=== PATIENT | male | born 1960 | race African-American/Black ===

== ENCOUNTER 2018-09-12 08:23 | Emergency (ER) | payer BC, OTHER ==
--- OUTSIDE RECORDS SUMMARY | 2018-09-12 08:25 | XMS REPORT | Clinical Summary ---
:1960 Author Organization [facility] Address [address] [place] [address] Care Team Providers Name Role Phone Gerald Jenkins MD Primary Care Provider Allergies Active Allergy Reactions Severity Noted Date Comments No Known Drug Allergies 09/01/2015 Dogs Medications Medication Sig Dispensed Refills Start End Date Status Date LATA 10-40 mg per TK 1 T PO 6 Active tablet QD.... STOP 6 AMLODIPINE/B ENAZEPRIL doxazosin (CARDURA) 2 TK 1 T PO 2 Active MG tablet BID 6 SIMVASTATIN ORAL Take by 0 Active mouth. HYDROCHLOROTHIAZIDE Take by 0 Active ORAL mouth. aspirin (ASPIRIN LOW 0 Active DOSE) 81 MG enteric coated tablet carvedilol (COREG) 25 0 Active MG tablet meloxicam (MOBIC) 15 mg Take 1 90 tablet 0 Active tablet tablet (15 9 mg total) by mouth daily. HYDROcodone-acetaminoph TK 1 T PO Q 0 01/11/20 Discontinued en 2.5-325 mg tablet 4 TO 6 H PRN 6 18 P HYDROcodone-acetaminoph Take 1-2 50 tablet 0 02/10/20 en (NORCO) 5-325 mg per tablets by 8 18 tablet mouth every 4 (four) hours as needed for moderate pain for up to 30 days. Max Daily Amount: 12 tablets cephalexin (KEFLEX) 500 Take 1 8 capsule 0 01/13/20 MG capsule capsule (500 8 18 mg total) by mouth every 6 (six) hours for 2 days. To begin after surgery ondansetron ODT (ZOFRAN Take 1 30 tablet 1 02/10/20 ODT) 4 MG tablet (4 mg 8 18 disintegrating tablet total) by mouth every 8 (eight) hours as needed for nausea or vomiting for up to 30 days. meloxicam (MOBIC) 15 mg Take 1 30 tablet 1 06/14/19 Discontinued tablet tablet (15 8 19 mg total) by mouth daily. meloxicam (MOBIC) 15 mg Take 1 30 tablet 1 06/14/19 Discontinued tablet tablet (15 9 19 mg total) by mouth daily. meloxicam (MOBIC) 15 mg Take 1 30 tablet 1 06/14/19 Discontinued tablet tablet (15 9 19 mg total) by mouth daily. vosycbhcqcrcr-rrua-hixx Take 320.5 180 capsule 1 05/02/19 drocod 320.5-30-16 mg mg of opiate 9 19 capsule by mouth every 4 (four) hours for 30 days. Active Problems Problem Noted Date Acute medial meniscus tear of right knee 12/07/2017 Overview: Added automatically from request for surgery [id number] S/P shoulder rotator cuff repair 09/01/2015 Overview: Discussed activity modification, wound care, and home exeresis . WIll f/u in 4wks and at that time will place in PT Encounters Date Type Specialty Care Team Description 07/25/2018 Office Visit Orthopedic Surgery Vern Ling, Patellofemoral pain MD syndrome of right Sedrick Lazo knee (Primary Dx) Sayda PA 06/13/2018 Office Visit Orthopedic Surgery Vern Ling, Patellofemoral pain syndrome of right knee (Primary Dx); Knee effusion, right; Acute tear medial meniscus, right, subsequent encounter 04/02/2018 Office Visit Orthopedic Surgery Vern Ling, Effusion of right knee (Primary Dx) 03/12/2018 Office Visit Orthopedic Surgery Sedrick Lazo Tear of medial D., PA meniscus of right Vern Ling, knee, current, MD unspecified tear type, subsequent encounter (Primary Dx) 01/21/2018 Office Visit Orthopedic Surgery Sedrick Lazo Tear of medial D., PA meniscus of right knee, current, unspecified tear type, subsequent encounter (Primary Dx) 01/11/2018 Surgery General Surgery Vern Ling, Right Arthroscopy of MD the Knee with partial Medial Meniscectomy 01/11/2018 Anesthesia Event General Surgery Karena Schrader FNP 01/11/2018 Hospital Encounter General Surgery Vern Ling MD 01/10/2018 Orders Only Orthopedic Surgery Sedrick Lazo PA 01/10/2018 Orders Only Orthopedic Surgery Lakesha Alcaraz MA 12/07/2017 Transcribe Orders Orthopedic Surgery Vern Ling, Acute medial meniscus MD tear of right knee, initial encounter (Primary Dx) 12/06/2017 Office Visit Orthopedic Surgery Vern Ling, Complex tear of MD medial meniscus of right knee as current injury, initial encounter (Primary Dx) 12/06/2017 Hospital Encounter Radiology Vern Ling, Complex tear of MD medial meniscus of right knee as current injury, initial encounter 12/06/2017 Office Visit Orthopedic Surgery Vern Ling, Complex tear of medial meniscus of right knee as current injury, initial encounter (Primary Dx); Right knee pain, unspecified chronicity after 09/11/2017 Family History Medical History Relation Name Comments Kidney disease Father Heart disease Mother Relation Name Status Comments Brother 3 Alive Father Mother Son Alive Social History Tobacco Use Types Packs/Day Years Used Date Never Smoker Smokeless Tobacco: Never Used Alcohol Use Drinks/Week oz/Week Comments No Sex Assigned at Date Recorded Not on file Job Start Date Occupation Industry Not on file Not on file Not on file Travel History Travel Start Travel End No recent travel history available. Last Filed Vital Signs Vital Sign Reading Time Taken Blood Pressure 140/89 01/11/2018 1:51 PM [employer] Pulse 71 01/11/2018 1:51 PM [employer] Temperature 36.2 C (97.2 F) 01/11/2018 1:24 PM [employer] Respiratory Rate 14 01/11/2018 1:51 PM [employer] Oxygen Saturation 99% 01/11/2018 1:51 PM [employer] Inhaled Oxygen Concentration - - Weight 109 kg (240 lb) 01/11/2018 11:01 AM [employer] Height 180.3 cm (5' 11") 01/11/2018 11:01 AM [employer] Body Mass Index 33.47 01/11/2018 11:01 AM [employer] Plan of Treatment Health Maintenance Due Date Last Done Comments COLONOSCOPY SCREENING 2012 SHINGLES VACCINES (#1) 2012 INFLUENZA VACCINE 10/03/2018 Procedures Procedure Name Priority Date/Time Associated Comments Diagnosis ME ARTHROCENTESIS Routine 04/02/2018 8:00 Effusion of right Results for this ASPIR&/INJ MAJOR AM [employer] knee procedure are in JT/BURSA W/O US the results section. ME AN ELECTIVE Routine 01/11/2018 12:23 SUPRAGLOTTIC AIRWAY PM [employer] Procedure Note - Tabby Solis CRNA - 01/11/2018 12:23 PM [employer] Airway Date/Time: 01/11/2018 11:59 AM Performed by: TABBY SOLIS Authorized by: MIRZA TEJEDA Location: OR Urgency: Elective Difficult Airway: No Anesthesiologist: MIRZA TEJEDA Resident/AUTOMOTIVE REPAIR TECHNICIAN/AA: TABBY SOLIS Performed by: resident/AUTOMOTIVE REPAIR TECHNICIAN/AA Preoxygenated with 100% O2: Yes C-spine Precautions Maintained Throughout: Yes Mask Ventilation: Not attempted Final Airway Type: Supraglottic airway Final LMA: Unique LMA Size: 4 Number of Attempts at Approach: 1 POC GLUCOSE Routine 01/11/2018 11:33 AM Results for this [employer] procedure are in the results section. ESTIMATED GFR STAT 01/11/2018 10:37 AM Results for this [employer] procedure are in the results section. BASIC METABOLIC STAT 01/11/2018 10:37 AM Results for this PANEL [employer] procedure are in the results section. HC COMPLETE BLD STAT 01/11/2018 10:37 AM Results for this COUNT W/AUTO DIFF [employer] procedure are in the results section. MRI KNEE WO STAT 12/06/2017 12:52 PM Complex tear of Results for this CONTRAST RIGHT CDT medial meniscus of procedure are in right knee as the results current injury, section. initial encounter XR KNEE 4+ VW RIGHT Routine 12/06/2017 10:16 AM Right knee pain, Results for this CDT unspecified procedure are in chronicity the results section. after 09/11/2017 Results Large Joint Arthrocentesis: knee, R knee (04/02/2018 8:00 AM [employer]) [facility] 04/02/20188:59 AM Large Joint Arthrocentesis: knee, R knee Consent given by: patient Timeout: Immediately prior to procedure a time out was called to verify the correct patient, procedure, equipment, personal support worker and site/side marked as required Supporting Documentation Indications: pain and joint swelling Procedure Details Preparation: Patient was prepped and draped in the usual sterile fashion Ultrasound guided: no Location: knee - R knee Right side: Needle size: 25 G Approach: anterolateral Right knee medications administered: 5 mL lidocaine 10 mg/mL (1 %); 80 mg methylPREDNISolone acetate 40 mg/mL POC glucose (01/11/2018 11:33 AM [employer]) Pathologist [facility] POC glucose 89 65 - 99 mg/dL [facility] DEPARTMENT OF Comment: PATHOLOGY AND Meter ID: [id number] GENOMIC MEDICINE Solution Manager: Erick Baldwin Specimen Performing Organization Address City/[facility]/Zipcode Phone Number [facility] DEPARTMENT OF PATHOLOGY [address] [place] [address] AND [facility] MEDICINE Estimated GFR (01/11/2018 10:37 AM [employer]) Pathologist [facility] Estimated GFR 85 mL/min/1.73 [facility] DEPARTMENT Comment: m2 OF PATHOLOGY AND CatergoryUnitsInterpretation GENOMIC MEDICINE G1 >=90 Normal or high G2 60-89Mildly decreased [id number] to moderately decreased [id number] to severely decreased G4 15-29Severely decreased G5 <15Kidney failure The eGFR was calculated using the Chronic Kidney Disease Epidemiology Collaboration (CKD-EPI) equation. Interpretation is based on recommendations of the National Kidney Foundation-Kidney Disease Outcomes Quality Initiative (NKF-KDOQI) published in 2014. Specimen Plasma specimen Performing Organization Address City/[facility]/Zipcode Phone Number [facility] DEPARTMENT OF PATHOLOGY [address] [place] [address] AND [employer] MEDICINE CBC with platelet and differential (01/11/2018 10:37 AM [employer]) Pathologist [facility] WBC 8.0 4.5 - 11.0 k/uL [facility] DEPARTMENT OF PATHOLOGY AND GENOMIC MEDICINE RBC 5.07 4.40 - 6.00 m/uL [facility] DEPARTMENT OF PATHOLOGY AND GENOMIC MEDICINE HGB 15.0 14.0 - 18.0 g/dL [facility] DEPARTMENT OF PATHOLOGY AND GENOMIC MEDICINE HCT 45.7 41.0 - 51.0 % [facility] DEPARTMENT OF PATHOLOGY AND GENOMIC MEDICINE MCV 90.1 82.0 - 100.0 fL [facility] DEPARTMENT OF PATHOLOGY AND GENOMIC MEDICINE MCH 29.6 27.0 - 34.0 pg [facility] DEPARTMENT OF PATHOLOGY AND GENOMIC MEDICINE MCHC 32.8 31.0 - 37.0 g/dL [facility] DEPARTMENT OF PATHOLOGY AND GENOMIC MEDICINE RDW - SD 43.8 37.0 - 55.0 fL [facility] DEPARTMENT OF PATHOLOGY AND GENOMIC MEDICINE MPV 10.7 6.9 - 11.0 fL [facility] DEPARTMENT OF PATHOLOGY AND GENOMIC MEDICINE Platelet count 245 150 - 400 K/uL [facility] DEPARTMENT OF PATHOLOGY AND GENOMIC MEDICINE Nucleated RBC 0.00 /100 WBC [facility] DEPARTMENT OF PATHOLOGY AND GENOMIC MEDICINE Neutrophils 54.6 39.0 - 69.0 % [facility] DEPARTMENT OF PATHOLOGY AND GENOMIC MEDICINE Lymphocytes 33.4 25.0 - 45.0 % [facility] DEPARTMENT OF PATHOLOGY AND GENOMIC MEDICINE Monocytes 9.8 0.0 - 10.0 % [facility] DEPARTMENT OF PATHOLOGY AND GENOMIC MEDICINE Eosinophils 1.4 0.0 - 5.0 % [facility] DEPARTMENT OF PATHOLOGY AND GENOMIC MEDICINE Basophils 0.5 0.0 - 1.0 % [facility] DEPARTMENT OF PATHOLOGY AND GENOMIC MEDICINE Immature granulocytes 0.3 0.0 - 1.0 % [facility] DEPARTMENT OF PATHOLOGY AND GENOMIC MEDICINE Specimen Blood Performing Organization Address City/[facility] Phone Number [facility] DEPARTMENT OF PATHOLOGY [address] [place] [address] AND [employer] [facility] Basic metabolic panel (01/11/2018 10:37 AM [employer]) Sodium 141 135 - 148 mEq/L [facility] DEPARTMENT OF PATHOLOGY AND GENOMIC MEDICINE Potassium 4.3 3.5 - 5.0 mEq/L [facility] DEPARTMENT OF PATHOLOGY AND GENOMIC MEDICINE Chloride 106 98 - 112 mEq/L [facility] DEPARTMENT OF PATHOLOGY AND GENOMIC MEDICINE CO2 27 24 - 31 mEq/L [facility] DEPARTMENT OF PATHOLOGY AND GENOMIC MEDICINE Anion gap 8@ANIO 7 - 15 mEq/L [facility] DEPARTMENT OF PATHOLOGY AND GENOMIC MEDICINE BUN 13 6 - 20 mg/dL [facility] DEPARTMENT OF PATHOLOGY AND GENOMIC MEDICINE Creatinine 1.12 0.70 - 1.20 mg/dL [facility] DEPARTMENT OF PATHOLOGY AND GENOMIC MEDICINE Glucose 96 65 - 99 mg/dL [facility] DEPARTMENT OF PATHOLOGY AND GENOMIC MEDICINE Calcium 9.1 8.3 - 10.2 mg/dL [facility] DEPARTMENT OF PATHOLOGY AND GENOMIC MEDICINE Specimen Plasma specimen Performing Organization Address [facility] Phone Number [facility] DEPARTMENT OF PATHOLOGY [address] [place] [address] AND [employer] [facility] MRI Knee Right Wo Contrast (12/06/2017 12:52 PM CDT) Specimen Narrative Performed At EXAMINATION:MRI KNEE WO CONTRAST RIGHT [facility] CLINICAL HISTORY:S83.231A Complex tear of medial meniscuscurrent injuryright kneeinitial encounter, pain right knee TECHNIQUE:Multiplanar multisequence MR imaging of violeta was performed without contrast. COMPARISON:No IMPRESSION: CRUCIATE LIGAMENTS: Intact. COLLATERAL LIGAMENTS: Mild MCL sprain. LCL complex well-maintained. MEDIAL COMPARTMENT: Intermediate intensity complex signal abnormality in the free edge of the posterior horn medial meniscus compatible with chronic complex tearing or early maceration. No acute tear identified. Mild chondral fissuring overlying the weightbearing medial femoral condyle and medial tibial plateau. Marrow signals are well-maintained. LATERAL COMPARTMENT: Mild free edge fibrillation in the body of lateral meniscus without a discrete tear identified. Cartilage well-maintained. PATELLOFEMORAL COMPARTMENT:Cartilage is well maintained. EXTENSOR MECHANISM: Mild distal quadriceps tendinitis. Patellar tendon well- maintained. BONE MARROW: Well maintained. Slightly prominent osteophyte along the anterior margin centrally in the medial tibial plateau adjacent to the intercondylar spine, though without marrow signal abnormality. PERIARTICULAR SOFT TISSUES: Small joint effusion. No Patel or parameniscal cysts. Edema anterior to the patella and patellar tendon indicating prepatellar bursitis. SUMMARY: 1.Mild MCL sprain , distal quadriceps tendinitis, and prepatellar bursitis. 2.Chronic complex tear or early maceration of medial meniscus. 3.Incidental and/or degenerative changes as above. [facility]-[id number] Procedure Note Interface, Radiology Results Incoming - 12/06/2017 1:06 PM CDT EXAMINATION: MRI KNEE WO CONTRAST RIGHT CLINICAL HISTORY: S83.231A Complex tear of medial meniscus current injury right knee initial encounter, pain right knee TECHNIQUE: Multiplanar multisequence MR imaging of the right knee was performed without contrast. COMPARISON: No IMPRESSION: CRUCIATE LIGAMENTS: Intact. COLLATERAL LIGAMENTS: Mild MCL sprain. LCL complex well-maintained. MEDIAL COMPARTMENT: Intermediate intensity complex signal abnormality in the free edge of the posterior horn medial meniscus compatible with chronic complex tearing or early maceration. No acute tear identified. Mild chondral fissuring overlying the weightbearing medial femoral condyle and medial tibial plateau. Marrow signals are well-maintained. LATERAL COMPARTMENT: Mild free edge fibrillation in the body of lateral meniscus without a discrete tear identified. Cartilage well-maintained. PATELLOFEMORAL COMPARTMENT: Cartilage is well maintained. EXTENSOR MECHANISM: Mild distal quadriceps tendinitis. Patellar tendon well- maintained. BONE MARROW: Well maintained. Slightly prominent osteophyte along the anterior margin centrally in the medial tibial plateau adjacent to the intercondylar spine, though without marrow signal abnormality. PERIARTICULAR SOFT TISSUES: Small joint effusion. No Patel or parameniscal cysts. Edema anterior to the patella and patellar tendon indicating prepatellar bursitis. SUMMARY: 1. Mild MCL sprain , distal quadriceps tendinitis, and prepatellar bursitis. 2. Chronic complex tear or early maceration of medial meniscus. 3. Incidental and/or degenerative changes as above. [facility]-[id number] Performing Organization Address City/[facility]/Zipcode Phone Number [employer] [address] [place] [address] XR Knee 4+ Vw Right (12/06/2017 10:16 AM CDT) Specimen Narrative Performed At 4 views (standing AP/PA, lateral and [employer]) of the Right knee(s) [facility] reveal no evidence of fracture, dislocation or any other acute or chronic osseous abnormalities. Of note there is some relatively advanced medial compartment OA of the left knee Performing Organization Address City/[facility]/Zipcode Phone Number [employer] [address] [place] [address] after 09/11/2017 Advance Directives Patient has advance care planning documents on file. For more information, please contact:Karl Siegel[address] [place] [phone]
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
[2018-09-12] MEDS ORDERED: KETOROLAC 30 MG/ML INJ ONE (10:10)
== END 2018-09-12 10:15 | disposition home or self-care (01) ==
LOC: ER 08:23
DX: S22.31XA Fracture of one rib, right side, initial encounter for closed fracture (principal); V86.55XA Driver of 3- or 4- wheeled all-terrain vehicle (ATV) injured in nontraffic accident, initial encounter; I10 Essential (primary) hypertension; E78.5 Hyperlipidemia, unspecified; Z79.82 Long term (current) use of aspirin
CPT/HCPCS: 71250; 99284